=== PATIENT | male | born 1935 | race Caucasian/White ===

== ENCOUNTER 2017-05-06 23:42 | Emergency (ER) | payer OTHER ==
[~2017-05-06] VITALS: Ht 182.9 cm; Wt 112.4 kg
[~2017-05-06 23:42] MED LIST: ALLERGY RELIEF10 M1 PO; ASPIR 8181 M1 PO; ASPIRIN81 M1 PO; ASPIRIN81 M2 PO; Aspirin E.C. PO; CEFDINIR300 MG PO; COUMADIN1 MG; Colace PO; Coumadin,Jantoven PO; Dulcolax PO; Ecotrin PO; FLEXERIL10 MG PO; FLOMAX0.4 MG; FLOMAX0.4 MG PO; Feosol PO; Flomax PO; Flonase BOTH NARES; Flora-Q,Risaquad PO; JANTOVEN5 MG PO; KEFLEX500 MG PO; LIPITOR80 MG; LIPITOR80 MG PO; LISINOPRIL10 MG PO; LOPID600 MG PO; LOPRESSOR50 MG PO; LORTAB 7.5-500473 ML PO; Levaquin PO; Lipitor PO; Lisinopril PO; Lopid PO; METOPROLOL SUCC50 MG PO; METOPROLOL TART50 MG PO; Miralax, Glycolax PO; Oscal 500 w/Vitamin PO; PYRIDIUM100 MG PO; Senokot S,Pericolace PO; TOPROL XL50 MG PO; TYLENOL REGULA325 MG PO; Theragran PO; Toprol XL PO; Vancocin Oral Soluti PO; Vicodin,Norco 5/325 PO; WARFARIN PO; WARFARIN SODIUM1 MG PO; ZESTRIL10 MG PO; Zestril,Prinivil PO
[2017-05-07 00:38] LABS: ADD MIUA? YES; BILIRUBIN NEGATIVE; BLOOD LARGE; COLOR AMBER ((YELLOW)); GLUCOSE (STRIP) NEGATIVE; KETONES NEGATIVE; LEUKOCYTES LARGE; NITRITE NEGATIVE; PROTEIN (STRIP) 100; SPECIFIC GRAVITY 1.021 (1.000-1.030)
[2017-05-07] MEDS ORDERED: BACTRIM,SEPT1 TABLET PO (00:44)
[2017-05-07 00:58] LABS: RED BLOOD CELLS TNTC /HPF (0-5); UCUL ADDED? YES; WHITE BLOOD CELLS TNTC /HPF (0-5)
[2017-05-07 01:17] VITALS: BP 188/95
[2017-05-08] MEDS ORDERED: KEFLEX500 MG PO (10:20)
== END 2017-05-07 01:18 | disposition home or self-care (01) ==
LOC: EXP 23:42 → EME 23:42 → EXP 05-07 01:18
PROVIDERS: Physician Assistant
DX: N39.0 Urinary tract infection, site not specified (principal); E11.9 Type 2 diabetes mellitus without complications; Z87.440 Personal history of urinary (tract) infections; Z87.442 Personal history of urinary calculi; I25.10 Atherosclerotic heart disease of native coronary artery without angina pectoris; Z86.73 Personal history of transient ischemic attack (TIA), and cerebral infarction without residual deficits; Z79.82 Long term (current) use of aspirin; Z79.01 Long term (current) use of anticoagulants; Z95.1 Presence of aortocoronary bypass graft; Z95.2 Presence of prosthetic heart valve; Z96.651 Presence of right artificial knee joint; Z96.642 Presence of left artificial hip joint
CPT/HCPCS: 81003; 87086; 99281; 99284

== ENCOUNTER 2017-05-08 07:59 | Emergency (ER) | payer OTHER ==
[~2017-05-08] VITALS: Ht 182.9 cm; Wt 112.6 kg
[~2017-05-08 07:59] MED LIST changes: +BACTRIM,SEPT1 TABLET PO
[2017-05-08 08:53] LABS: HEMATOCRIT 36.5 % (38.0-50.0); HEMOGLOBIN 12.6 G/DL (12.5-16.6); MCH 30.2 PG (29.0-34.0); MCHC 34.5 G/DL (30.0-36.0); MCV 87.5 FL (86-99); PLATELET COUNT 146 K/uL (156-360); RBC DIS.WIDTH-SD 45.1 % (39-53); RED BLOOD COUNT 4.17 M/uL (4.00-5.50); WHITE BLOOD COUNT 16.4 K/uL (4.1-10.2)
[2017-05-08 08:59] LABS: INTER. NORMALIZED RATIO 4.2
[2017-05-08 09:05] LABS: ALBUMIN 3.7 g/dL (3.2-4.8); CHLORIDE 101 mEq/L (99-109); POTASSIUM 4.7 mEq/L (3.7-5.4); SODIUM 132 mEq/L (136-147)
[2017-05-08 09:08] LABS: GLUCOSE 98 mg/dL (70-99)
[2017-05-08 09:10] LABS: TOTAL BILIRUBIN 1.9 mg/dL (0.0-1.0)
[2017-05-08 09:11] LABS: ALKALINE PHOSPHATASE 74 IU/L (3-129); CREATININE 0.8 mg/dL (0.6-1.3); GFR ESTIMATE (CALCULATED) > 59 mL/min/ (58.99-99999)
[2017-05-08 09:12] LABS: UREA NITROGEN (BUN) 15 mg/dL (9-23)
[2017-05-08 09:13] LABS: AST (GOT) 32 IU/L (2-34)
[2017-05-08 09:14] LABS: ALT (GPT) 15 IU/L (3-49)
[2017-05-08 09:26] LABS: APPEARANCE SL.HAZY ((CLEAR)); BILIRUBIN NEGATIVE; BLOOD LARGE; COLOR AMBER ((YELLOW)); GLUCOSE (STRIP) NEGATIVE; KETONES 5; LEUKOCYTES MODERATE; NITRITE NEGATIVE; PROTEIN (STRIP) 100; SPECIFIC GRAVITY 1.025 (1.000-1.030)
[2017-05-08 09:43] LABS: BACTERIA RARE /HPF; EPITHELIAL CELLS RARE /HPF; MUCUS NONE SEEN /LPF; RED BLOOD CELLS TNTC /HPF (0-5); UCUL ADDED? YES; WHITE BLOOD CELLS TNTC /HPF (0-5)
[2017-05-08] MEDS ORDERED: KEFLEX500 MG PO (10:20)
[2017-05-08 10:29] VITALS: BP 147/69
== END 2017-05-08 10:31 | disposition home or self-care (01) ==
LOC: EME 07:59
PROVIDERS: Physician Assistant
DX: N39.0 Urinary tract infection, site not specified (principal); Z79.01 Long term (current) use of anticoagulants; Z79.82 Long term (current) use of aspirin; R31.9 Hematuria, unspecified; N20.0 Calculus of kidney; I48.91 Unspecified atrial fibrillation; Z87.440 Personal history of urinary (tract) infections; Z87.442 Personal history of urinary calculi; Z95.1 Presence of aortocoronary bypass graft; Z95.2 Presence of prosthetic heart valve
CPT/HCPCS: 74000; 80053; 81003; 85027; 85610; 87086; 99281; 99283

== ENCOUNTER 2017-09-20 10:05 | Emergency (ER) | payer OTHER ==
[~2017-09-20] VITALS: Ht 182.9 cm; Wt 117.7 kg
[2017-09-20 10:51] LABS: HEMATOCRIT 38.5 % (38.0-50.0); HEMOGLOBIN 13.4 G/DL (12.5-16.6); MCH 29.5 PG (29.0-34.0); MCHC 34.8 G/DL (30.0-36.0); MCV 84.8 FL (86-99); PLATELET COUNT 149 K/uL (156-360); RBC DIS.WIDTH-CV 14.7 % (11.8-14.6); RBC DIS.WIDTH-SD 43.4 % (39-53); RED BLOOD COUNT 4.54 M/uL (4.00-5.50); WHITE BLOOD COUNT 6.2 K/uL (4.1-10.2)
[2017-09-20 10:53] LABS: APPEARANCE CLEAR ((CLEAR)); BILIRUBIN NEGATIVE; BLOOD LARGE; COLOR STRAW ((YELLOW)); GLUCOSE (STRIP) NEGATIVE; KETONES NEGATIVE; LEUKOCYTES NEGATIVE; NITRITE NEGATIVE; PROTEIN (STRIP) NEGATIVE; SPECIFIC GRAVITY 1.008 (1.000-1.030); UROBILINOGEN 0.2 MG/DL (0.2-1.0)
[2017-09-20 11:01] LABS: CHLORIDE 90 mEq/L (99-109); SODIUM 126 mEq/L (136-147)
[2017-09-20 11:03] LABS: GLUCOSE 188 mg/dL (70-99)
[2017-09-20 11:06] LABS: CREATININE 0.7 mg/dL (0.6-1.3); GFR ESTIMATE (CALCULATED) > 59 mL/min/ (58.99-99999)
[2017-09-20 11:07] LABS: UREA NITROGEN (BUN) 13 mg/dL (9-23)
[2017-09-20 11:12] LABS: BACTERIA NONE SEEN /HPF; EPITHELIAL CELLS RARE /HPF; MUCUS NONE SEEN /LPF; RED BLOOD CELLS TNTC /HPF (0-5); UCUL ADDED? YES; WHITE BLOOD CELLS 0-5 /HPF (0-5)
[2017-09-20 12:17] LABS: INTER. NORMALIZED RATIO 3.1
[2017-09-20 12:19] LABS: PTT 48.2 SEC (25-37)
[2017-09-20] MEDS ORDERED: FLOMAX0.4 MG PO (13:04)
[2017-09-20] MEDS ORDERED: ZOFRAN ODT4 MG PO (13:04)
[2017-09-20] MEDS ORDERED: PERCOCET 5/31 TABLET PO (13:04)
[2017-09-20 14:09] VITALS: BP 180/71
== END 2017-09-20 14:10 | disposition home or self-care (01) ==
LOC: EME 10:05
PROVIDERS: Nurse Practitioner Family
DX: N20.0 Calculus of kidney (principal); E87.1 Hypo-osmolality and hyponatremia; K57.30 Diverticulosis of large intestine without perforation or abscess without bleeding; N21.0 Calculus in bladder; K80.20 Calculus of gallbladder without cholecystitis without obstruction; E11.9 Type 2 diabetes mellitus without complications; Z79.01 Long term (current) use of anticoagulants; Z79.82 Long term (current) use of aspirin; Z87.442 Personal history of urinary calculi; Z87.440 Personal history of urinary (tract) infections; Z86.19 Personal history of other infectious and parasitic diseases; Z86.73 Personal history of transient ischemic attack (TIA), and cerebral infarction without residual deficits; Z95.2 Presence of prosthetic heart valve; Z95.1 Presence of aortocoronary bypass graft; Z98.890 Other specified postprocedural states; Z96.651 Presence of right artificial knee joint; Z96.642 Presence of left artificial hip joint; Z85.9 Personal history of malignant neoplasm, unspecified; Z90.49 Acquired absence of other specified parts of digestive tract
CPT/HCPCS: 74176; 80048; 81003; 84295; 85027; 85610; 85730; 87086; 99281; 99284; J7030

== ENCOUNTER 2017-10-17 20:53 | Inpatient (IN) | payer OTHER ==
[~2017-10-17] VITALS: Ht 182.9 cm; Wt 106.0 kg
[~2017-10-17 20:53] MED LIST changes: +PERCOCET 5/31 TABLET PO; +ZOFRAN ODT4 MG PO
[2017-10-17 21:35] LABS: HEMOGLOBIN 12.6 G/DL (12.5-16.6); MCH 29.2 PG (29.0-34.0); MCV 83.5 FL (86-99); RBC DIS.WIDTH-CV 13.8 % (11.8-14.6); RBC DIS.WIDTH-SD 40.8 % (39-53); RED BLOOD COUNT 4.31 M/uL (4.00-5.50); WHITE BLOOD COUNT 10.7 K/uL (4.1-10.2)
[2017-10-17 21:41] LABS: PLATELET COUNT 202 K/uL (156-360)
[2017-10-17 21:51] LABS: ALBUMIN 4.1 g/dL (3.2-4.8)
[2017-10-17 21:52] LABS: CHLORIDE 93 mEq/L (99-109); POTASSIUM 4.2 mEq/L (3.7-5.4); SODIUM 127 mEq/L (136-147)
[2017-10-17 21:54] LABS: GLUCOSE 124 mg/dL (70-99); TOTAL PROTEIN 7.6 g/dL (6.4-8.3)
[2017-10-17 21:56] LABS: TOTAL BILIRUBIN 1.6 mg/dL (0.0-1.0)
[2017-10-17 21:57] LABS: ALKALINE PHOSPHATASE 107 IU/L (3-129)
[2017-10-17 21:58] LABS: CREATININE 0.7 mg/dL (0.6-1.3); GFR ESTIMATE (CALCULATED) > 59 mL/min/ (58.99-99999)
[2017-10-17 21:59] LABS: AST (GOT) 19 IU/L (2-34); UREA NITROGEN (BUN) 11 mg/dL (9-23)
[2017-10-17 22:01] LABS: ALT (GPT) 18 IU/L (3-49)
[2017-10-17 23:08] LABS: INTER. NORMALIZED RATIO 2.5
[2017-10-17 23:11] LABS: PTT 41.7 SEC (25-37)
[2017-10-17 23:19] LABS: LIPASE 32 U/L (1.0-51.0)
[2017-10-17 23:22] LABS: TROP-I INTERPRETATION NEGATIVE; TROPONIN-I < 0.01 ng/mL (0.0-0.30)
[2017-10-18 00:40] LABS: APPEARANCE CLEAR ((CLEAR)); BILIRUBIN NEGATIVE; BLOOD MODERATE; COLOR YELLOW ((YELLOW)); GLUCOSE (STRIP) NEGATIVE; KETONES NEGATIVE; LEUKOCYTES NEGATIVE; NITRITE NEGATIVE; PROTEIN (STRIP) NEGATIVE; SPECIFIC GRAVITY 1.012 (1.000-1.030)
[2017-10-18 00:43] LABS: BACTERIA RARE /HPF; EPITHELIAL CELLS NONE SEEN /HPF; MUCUS NONE SEEN /LPF; RED BLOOD CELLS 20-30 /HPF (0-5); UCUL ADDED? NO; WHITE BLOOD CELLS 0-5 /HPF (0-5)
[2017-10-18 01:52] LABS: ERTH.SED.RATE 82 MM/HR (0-20)
[2017-10-18] MEDS ORDERED: FUROSEMIDE20 MG PO (01:52)
[2017-10-18] MEDS ORDERED: METOLAZONE5 MG PO (01:53)
[2017-10-18] MEDS ORDERED: K-DUR20 MEQ PO (01:53)
[2017-10-18] MEDS ORDERED: GEMFIBROZIL600 MG PO (01:55)
[2017-10-18] MEDS ORDERED: WARFARIN SODIUM5 MG PO (01:55)
[2017-10-18] MEDS ORDERED: ATORVASTATIN CA80 MG PO (01:55)
[2017-10-18] MEDS ORDERED: METOPROLOL SUCC50 MG PO (01:56)
[2017-10-18 05:59] VITALS: BP 176/81
[2017-10-18 06:16] LABS: HEMATOCRIT 36.1 % (38.0-50.0); MCH 28.2 PG (29.0-34.0); MCHC 33.2 G/DL (30.0-36.0); MCV 84.7 FL (86-99); PLATELET COUNT 192 K/uL (156-360); RED BLOOD COUNT 4.26 M/uL (4.00-5.50); WHITE BLOOD COUNT 7.9 K/uL (4.1-10.2)
[2017-10-18 06:24] LABS: INTER. NORMALIZED RATIO 2.5
[2017-10-18 06:48] LABS: ALBUMIN 3.9 G/DL (3.2-4.8); ALKALINE PHOSPHATASE 87 IU/L (3-129); ALT (GPT) 14 IU/L (3-49); AST (GOT) 14 IU/L (2-34); CHLORIDE 100 MEQ/L (99-109); CREATININE 0.5 MG/DL (0.6-1.3); GFR ESTIMATE (CALCULATED) > 59 mL/min/ (58.99-99999); GLUCOSE 97 mg/dL (70-99); POTASSIUM 4.4 MEQ/L (3.7-5.4); SODIUM 132 MEQ/L (136-147); TOTAL BILIRUBIN 1.5 MG/DL (0.0-1.0); TOTAL PROTEIN 6.5 G/DL (6.4-8.3); UREA NITROGEN (BUN) 9 mg/dL (9-23)
[2017-10-18 07:48] VITALS: BP 153/70
[2017-10-18 12:48] VITALS: BP 139/62
[2017-10-18 16:41] VITALS: BP 193/90
[2017-10-18 20:00] VITALS: BP 121/57
[2017-10-19] VITALS: BP 127/56
[2017-10-19 04:00] VITALS: BP 133/64
[2017-10-19 06:41] LABS: INTER. NORMALIZED RATIO 2.2
[2017-10-19 07:53] LABS: CHLORIDE 102 MEQ/L (99-109); CREATININE 0.6 MG/DL (0.6-1.3); GFR ESTIMATE (CALCULATED) > 59 mL/min/ (58.99-99999); GLUCOSE 89 mg/dL (70-99); POTASSIUM 4.8 MEQ/L (3.7-5.4); SODIUM 132 MEQ/L (136-147); UREA NITROGEN (BUN) 14 mg/dL (9-23)
[2017-10-19 08:00] VITALS: BP 154/70
[2017-10-19 11:50] VITALS: BP 170/77
== END 2017-10-19 16:18 | disposition home or self-care (01) | DRG 103 ==
LOC: EME 20:53 → 5SOUTH 10-18 03:50 → EDOF 10-18 03:50 → ENRESERV 10-18 04:04 → 5SOUTH 10-18 05:39
PROVIDERS: Hospitalist; Internal Medicine; Nurse Practitioner Adult Health
DX: R51 Headache (principal); E87.1 Hypo-osmolality and hyponatremia; E78.00 Pure hypercholesterolemia, unspecified; E11.9 Type 2 diabetes mellitus without complications; I10 Essential (primary) hypertension; I25.10 Atherosclerotic heart disease of native coronary artery without angina pectoris; I72.0 Aneurysm of carotid artery; E66.3 Overweight; Z96.642 Presence of left artificial hip joint; R26.9 Unspecified abnormalities of gait and mobility; Z96.651 Presence of right artificial knee joint; I48.2 Chronic atrial fibrillation; D72.829 Elevated white blood cell count, unspecified; Z68.31 Body mass index [BMI] 31.0-31.9, adult; Z87.440 Personal history of urinary (tract) infections; Z95.2 Presence of prosthetic heart valve; Z95.1 Presence of aortocoronary bypass graft; Z79.01 Long term (current) use of anticoagulants; Z85.46 Personal history of malignant neoplasm of prostate
CPT/HCPCS: 70450; 70496; 70498; 70551; 71045; 80048; 80053; 81003; 83690; 83880; 84484; 85027; 85610; 85651; 85730; 93005; 99281; 99284; J7030